=== PATIENT | male | born 1950 | race Asian ===

== ENCOUNTER 2016-08-16 12:37 | Outpatient (CLI) | payer OTHER ==
[~2016-08-16 12:37] MED LIST: ASA LOW DOSE81 MG PO; CIALIS5 MG PO; GLUCOPHAGE1000 MG PO; GLYB6TAB PO; LISI10TA11 PO; LORTAB1 TAB PO; RANI150T78 PO; ROSU10TA PO; ZOLP10TA2 PO
== END 2016-08-16 19:57 | disposition home or self-care (01) ==
LOC: RAD 12:37
DX: M25.531 Pain in right wrist (principal); M47.816 Spondylosis without myelopathy or radiculopathy, lumbar region

== ENCOUNTER 2017-09-27 12:07 | Outpatient (CLI) | payer OTHER | END 2017-09-27 19:28 | disposition home or self-care (01) | LOC: RAD 12:07 | DX: M54.5 Low back pain (principal); M54.2 Cervicalgia ==

== ENCOUNTER 2017-11-01 07:32 | Outpatient (CLI) | payer OTHER ==
[2017-11-01 08:35] LABS: PLATELET COUNT 228 K/uL (142-355)
== END 2017-11-01 22:34 | disposition home or self-care (01) ==
LOC: LABW 07:32
PROVIDERS: Family Medicine
DX: E11.9 Type 2 diabetes mellitus without complications (principal)
CPT/HCPCS: 36415; 80053; 80061; 83036; 85027

== ENCOUNTER 2019-12-20 01:24 | Emergency (ER) | payer OTHER ==
[~2019-12-20] VITALS: Ht 182.9 cm; Wt 89.4 kg
[2019-12-20 02:03] LABS: PLATELET COUNT 159 K/uL (142-355)
[2019-12-20 02:16] LABS: POTASSIUM 3.5 mmol/L (3.6-5.2)
[2019-12-20 03:41] VITALS: BP 149/75; TEMP 98.8
== END 2019-12-20 03:41 | disposition home or self-care (01) ==
LOC: ED 01:24
PROVIDERS: Emergency Medicine Emergency Medical Services
DX: G89.18 Other acute postprocedural pain (principal); Z51.89 Encounter for other specified aftercare
CPT/HCPCS: 80053; 81000; 85027; 96360; 96365; 96374; 96375; 99284; J1170

== ENCOUNTER 2022-07-07 00:46 | Emergency (ER) | payer OTHER ==
[~2022-07-07] VITALS: Ht 182.9 cm; Wt 89.4 kg
[2022-07-07 00:46] VITALS: BP 163/81; TEMP 98.3
== END 2022-07-07 02:50 | disposition home or self-care (01) ==
LOC: ED 00:46
DX: S41.152A Open bite of left upper arm, initial encounter (principal); S41.131A Puncture wound without foreign body of right upper arm, initial encounter; S51.851A Open bite of right forearm, initial encounter; Y04.1XXA Assault by human bite, initial encounter; Y92.89 Other specified places as the place of occurrence of the external cause
CPT/HCPCS: 90471; 99282; 99283